=== PATIENT | female | born 1990 | race Caucasian/White ===

== ENCOUNTER 2023-12-16 04:11 | Emergency (ER) | payer BC, SELFPAY ==
[2023-12-16 04:14] VITALS: BP 115/90; PULSE 101; TEMP 36.7; O2SAT 98; BMI 30.1
--- NOTE | 2023-12-16 04:24 | ED_ITS ---
HPI - Ear Problem General Chief complaint: Ear Stated complaint: EAR PAIN Time Seen by Provider: 12/16/23 04:12 Source: patient Mode of arrival: walk-in Limitations: no limitations History of Present Illness HPI Narrative: 33-year-old female presents for left ear pain. It woke her up from sleep an hour ago. No trauma and no pain in the right ear. She has had a hoarse voice for several days or perhaps a week. No drainage from her ear and she has not been swimming recently. The pain is moderate to severe and continuous. Related Data Previous Rx's ?Medication ?Instructions ?Recorded azithromycin 250 mg tablet See Rx Instructions PO .COMPLEX #6 12/16/23 (Zithromax Z-Benedict) tabs Allergies Allergy/AdvReac Type Severity Reaction Status Date / Time Penicillins AdvReac Mild Rash Verified 12/16/23 04:20 Review of Systems ROS Narrative A ten point review of systems is negative except as noted above. Exam Narrative Exam Narrative: Nurses note and vital signs reviewed and patient is not hypoxic. General: The patient appears well and in no apparent distress. Patient is resting comfortably on cart. Skin: Warm, dry, no pallor noted. There is no rash noted. Head: Normocephalic, atraumatic Eye: Normal conjunctiva, no drainage Ears, Nose, Mouth, and Throat: oral mucosa is moist. Nares patent. Right TM and external canal are normal. The left external canal is normal but the left TM is quite erythematous with a distorted light reflex. Cardiovascular: Regular Rate and Rhythm Respiratory: Patient is in no distress, no accessory muscle use, lungs are clear to auscultation, no wheezing, rales or rhonchi Back: non-tender GI: no tenderness to palpation Musculoskeletal: No joint swelling Neurological: A&O, normal speech Psychiatric: Cooperative Constitutional Vital Signs, click to edit/add: Last Vital Signs Temp 98.1 F 12/16/23 04:14 Pulse 101 H 12/16/23 04:14 Resp 16 12/16/23 04:14 BP 115/90 12/16/23 04:14 Pulse Ox 98 12/16/23 04:14 O2 Del Method Room Air 12/16/23 04:14 Course Vital Signs Vital signs: Vital Signs Temperature 98.1 F 12/16/23 04:14 Pulse Rate 101 H 12/16/23 04:14 Respiratory Rate 16 12/16/23 04:14 Blood Pressure 115/90 12/16/23 04:14 Pulse Oximetry 98 12/16/23 04:14 Oxygen Delivery Method Room Air 12/16/23 04:14 Temperature 98.1 F 12/16/23 04:14 Pulse Rate 101 H 12/16/23 04:14 Respiratory Rate 16 12/16/23 04:14 Blood Pressure 115/90 12/16/23 04:14 Pulse Oximetry 98 12/16/23 04:14 Oxygen Delivery Method Room Air 12/16/23 04:14 Medical Decision Making MDM Narrative Medical decision making narrative: My clinical impression is that she has otitis media and she started on Zithromax here because of allergies. 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 Treatment diagnosis and follow-up were discussed with the patient and her mother. Differential Diagnosis Differential Diagnosis: Otitis media, otitis externa Discharge Plan Discharge Stand Alone Forms: Portal Instructions Chief Complaint: Ear Clinical Impression: Otitis media Patient Disposition: Home, Self-Care Time of Disposition Decision: 04:22 Condition: Good Mode of Transportation: Private Vehicle Prescriptions / Home Meds: New azithromycin [Zithromax Z-Benedict] 250 mg tablet See Rx Instructions .ROUTE .COMPLEX Qty: 6 0RF Rx Instructions: For 250 mg dose pack: take 500 mg today (day 1), then 250 mg for 4 days (days 2-5) Print Language: Lithuanian Instructions: Ear Infection (ED)
[2023-12-16] MEDS: AZITHROMYCIN 250 MG TABLET 500 MG PO (04:35)
[2023-12-16] MEDS: ACETAMINOPHEN 300 MG/ 30 MG CODEINE TABLET 1 TAB PO (04:36)
== END 2023-12-16 04:44 | disposition home or self-care (01) ==
LOC: ER 04:26
PROVIDERS: Emergency Provider Emergency Medicine
DX: H66.92 Otitis media, unspecified, left ear (principal)
CPT/HCPCS: 99283